=== PATIENT | female | born 1960 | race Caucasian/White ===

== ENCOUNTER 2018-12-18 11:58 | Emergency (ER) | payer BC, OTHER ==
[2018-12-18] MEDS ORDERED: OSELTAMIVIR 75 MG CAPSULE PO STA (14:01)
[2018-12-18] MEDS ORDERED: IPRATROPIUM/ALBUTEROL 3 ML NEB INH STA (14:01)
[2018-12-18] MEDS ORDERED: IBUPROFEN 800 MG TABLET PO STA (14:04)
--- NOTE | 2018-12-18 14:46 | ED Physician Documentation ---
History of Present Illness - Stated complaint Stated Complaint: FLU LIKE SX - Chief complaint Chief Complaint: General - History obtained from History obtained from: Patient - History of Present Illness Timing: How many days ago (3) - Additonal information Additional information: The patient is a 58-year-old female who presents with shortness of breath of 3 days duration. She reports feeling increasingly miserable, with fever, headache, myalgias, arthralgias, congestion, and nonproductive cough. She reports sore throat and states she has been wheezing. She denies abdominal pain, nausea or vomiting. She denies history of similar symptoms in the past. Review of Systems Constitutional: reports: Fever, Chills, Myalgias, Fatigue Ears: denies: Ear pain Nose: reports: Congestion Throat: reports: Sore throat Cardiac: denies: Chest pain / pressure Respiratory: reports: Dyspnea, Cough GI: denies: Abdominal Pain, Nausea, Vomiting : denies: Dysuria Skin: denies: Rash Musculoskeletal: denies: Extremity swelling Neurologic: reports: Headache. 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 05/30/15 Albuterol Sulf [Ventolin Hfa 1 - 2 puffs INH Q4HR PRN #1 inhaler 12/18/18 Inhaler] Ondansetron Odt [Zofran] 4 mg TL Q6H PRN #10 tablet 12/18/18 Oseltamivir [Tamiflu] 75 mg PO BID #14 capsule 12/18/18 predniSONE [Prednisone] 40 mg PO DAILY #10 tablet 12/18/18 - Allergies Allergies/Adverse Reactions: Allergies Allergy/AdvReac Type Severity Reaction Status Date / Time Sulfa (Sulfonamide Allergy Intermediate Rash Verified 07/02/13 13:21 Antibiotics) - Social History Does the pt smoke?: Yes Smoking Status: Current every day smoker Does the pt drink ETOH?: No Does the pt have substance abuse?: No - Immunizations Immunizations are current?: Yes PD ED PE NORMAL - Vitals Vital signs reviewed: Yes (Mildly tachycardic.) - General General: Alert and oriented X 3, Well developed/nourished, Other (Appears miserable.) - HEENT HEENT: Atraumatic, PERRL, Ears normal, Pharynx benign - Neck Neck: Supple, no meningeal sign, No adenopathy, Thyroid normal, No JVD - Cardiac Cardiac: RRR, No murmur - Respiratory Respiratory: Other (Faint expiratory wheezing, without rales or rhonchi.) - Abdomen Abdomen: Soft, Non tender - Back Back: No CVA TTP - Derm Derm: No rash - Extremities Extremities: No edema, No calf tenderness / cord - Neuro Neuro: Alert and oriented X 3, No motor deficit, No sensory deficit Results - Vitals Vitals: Oxygen O2 Source Room air Oxygen Flow Rate 2 - Labs Labs: Laboratory Tests 12/18/18 13:40 Influenza A (Rapid) POSITIVE H Influenza B (Rapid) Negative - Rads (name of study) CXR Radiology: Prelim report reviewed, EMP read contemporaneously, See rad report (No acute cardiopulmonary findings.) PD MEDICAL DECISION MAKING - ED course Complexity details: reviewed results, re-evaluated patient, considered differential, d/w patient, d/w family ED course: The patient's presentation is consistent with influenza a, with a positive influenza swab. Chest x-ray reveals no pulmonary infiltrate. Her pulse oximetry was low at 90% on room air when she initially arrived. Her presentation does not suggest pulmonary embolus. Treatment in the emergency department included administration of Duoneb nebulizer and dexamethasone 10 mg orally. Ibuprofen 800 mg and Tamiflu 75 mg were administered orally. Zofran 4 mg is administered IV. Following the above treatment she felt subjectively improved, and pulse oximetry improved to 94% on room air. She is being discharged with prescriptions for albuterol inhaler, prednisone, Tamiflu, and Zofran. I discussed with her and her the diagnosis, outpatient treatment and follow-up, as well as potentially worrisome signs or symptoms that should prompt reevaluation in the emergency department. Departure - Departure Disposition: 01 Home, Self Care Clinical Impression: Influenza A Condition: Stable Instructions: ED Flu Follow-Up: [facility] [Provider Group] Prescriptions: Albuterol Sulf [Ventolin Hfa Inhaler] 1 - 2 puffs INH Q4HR PRN #1 inhaler PRN Reason: Shortness Of Air/Wheezing Ondansetron Odt [Zofran] 4 mg TL Q6H PRN #10 tablet PRN Reason: Nausea / Vomiting Oseltamivir [Tamiflu] 75 mg PO BID #14 capsule predniSONE [Prednisone] 40 mg PO DAILY #10 tablet Comments: Refrain from cigarette smoking. You can use Tylenol or ibuprofen as needed for fever or discomfort. Take Tamiflu twice daily as prescribed. Use albuterol inhaler 4 times daily, or more often if needed. Take prednisone once daily as prescribed. Follow-up with primary physician within 1 week. Call to schedule an appointment. Return to the emergency department if you develop increasing difficulty breathing, or otherwise worsening symptoms. Discharge Date/Time: 12/18/18 17:18
[2018-12-18] MEDS ORDERED: DEXAMETHASONE 10 MG/ML VIAL PO STA (15:14)
[2018-12-18] MEDS ORDERED: CHERRY SYRUP 10 ML UDC PO ONE (15:28)
--- NOTE | 2018-12-18 15:35 | XRAY Report ---
Reason: cough and dyspnea Procedure Date: 12/18/2018 Accession Number: [id number] / [id number] Procedure: XR - Chest 2 View X-Ray CPT Code: 69121 FULL RESULT: EXAM: CHEST RADIOGRAPHY EXAM DATE: 12/18/2018 03:14 PM. CLINICAL HISTORY: Cough and dyspnea. COMPARISON: None available. TECHNIQUE: 2 views. FINDINGS: Heart size is normal. Small calcified plaques in the thoracic aorta. No consolidation, pleural effusion, or pneumothorax. Mild diffuse prominence of the pulmonary interstitium may be related to chronic lung disease. IMPRESSION: No acute cardiopulmonary findings. RADIA
[2018-12-18 16:56] VITALS: BP 149/74
[2018-12-18] MEDS ORDERED: ONDANSETRON 4 MG/2 ML VIAL IVP STA (17:05)
== END 2018-12-18 17:18 | disposition home or self-care (01) ==
LOC: ED 11:58
DX: J10.1 Influenza due to other identified influenza virus with other respiratory manifestations (principal); F17.200 Nicotine dependence, unspecified, uncomplicated; Z79.82 Long term (current) use of aspirin
CPT/HCPCS: 71046; 87275; 87276; 94640; 94664; 99283; A9270; 36415

== ENCOUNTER 2019-03-07 15:48 | Outpatient (CLI) | payer OTHER ==
--- NOTE | 2019-03-07 16:17 | CT Report ---
Reason: CHRONIC SINUSITIS Procedure Date: 03/07/2019 Accession Number: [id number] / [id number] Procedure: CT - Sinuses CPT Code: FULL RESULT: EXAM: CT SINUS EXAM DATE: 03/07/2019 04:04 PM. HISTORY: CHRONIC SINUSITIS. COMPARISONS: HEAD ANGIO 07/02/2013 2:52 PM. TECHNIQUE: Routine multi-axial CT imaging performed through the sinuses. Iodinated IV contrast: None. Reconstructions: Multiplanar reformats. In accordance with CT protocol optimization, one or more of the following dose reduction techniques were utilized for this exam: automated exposure control, adjustment of mA and/or KV based on patient size, or use of iterative reconstructive technique. FINDINGS: RIGHT Frontal: Normal. Ethmoid: Normal. Maxillary: Normal. Sphenoid: Normal. Drainage Pathways: The frontal recess, ostiomeatal complex and sphenoethmoidal recess are patent and normal. LEFT Frontal: Normal. Ethmoid: Normal. Maxillary: Normal. Sphenoid: Normal. Drainage Pathways: The frontal recess, ostiomeatal complex and sphenoethmoidal recess are patent and normal. Nasal Cavity: No significant septal deviation. No mass. There has been probable resection of the anterior septum. Osseous Structures: Unremarkable. Orbits: Unremarkable. Other: None. IMPRESSION: Normal Sinus CT. No sinusitis. RADIA
== END 2019-03-07 15:49 | disposition home or self-care (01) ==
LOC: DI 15:48
PROVIDERS: ATTEND Internal Medicine
DX: J32.9 Chronic sinusitis, unspecified (principal); J40 Bronchitis, not specified as acute or chronic
CPT/HCPCS: 70486; 71046

== ENCOUNTER 2019-03-07 15:48 | Outpatient (CLI) | payer OTHER ==
--- NOTE | 2019-03-07 16:18 | XRAY Report ---
Reason: BRONCHITIS,NOT SPECIFIED ACUTE OR CHRONIC Procedure Date: 03/07/2019 Accession Number: [id number] / [id number] Procedure: XR - Chest 2 View X-Ray CPT Code: 65412 FULL RESULT: EXAM: CHEST RADIOGRAPHY EXAM DATE: 03/07/2019 03:57 PM. CLINICAL HISTORY: Bronchitis, not SPECIFIED ACUTE OR CHRONIC. COMPARISON: CHEST 2 VIEW 12/18/2018 3:03 PM. TECHNIQUE: 2 views. FINDINGS: Lungs/Pleura: No focal opacities evident. No pleural effusion. No pneumothorax. Normal volumes. Mediastinum: Heart and mediastinal contours are unremarkable. Other: None. IMPRESSION: Normal 2-view chest radiography. RADIA
== END 2019-03-07 15:49 | disposition home or self-care (01) ==
LOC: DI 15:48
PROVIDERS: ATTEND Nurse Practitioner Family
DX: J40 Bronchitis, not specified as acute or chronic (principal)
CPT/HCPCS: 71046

== ENCOUNTER 2019-12-12 10:57 | Emergency (ER) | payer MEDICAID, OTHER ==
[2019-12-12] MEDS ORDERED: CYCLOBENZAPRINE 10 MG TABLET PO STA (12:48)
[2019-12-12] MEDS ORDERED: KETOROLAC 60 MG/2 ML VIAL IM STA (12:48)
--- NOTE | 2019-12-12 12:53 | ED Physician Documentation ---
History of Present Illness - Stated complaint Stated Complaint: RT LEG PX - Chief complaint Chief Complaint: Ext Problem - History obtained from History obtained from: Patient, Family - History of Present Illness Timing: How many days ago (3) Pain level max: 8 Pain level now: 3 - Additonal information Additional information: 59-year-old female states that she is had intermittent low back pain for the past several weeks. She works at [employer] and does a lot of bending and lifting. She states that over the past 3 days, She is developed a right groin pain. This is worse with walking. Unable to stand up straight. No abdominal pain. No vomiting. No diarrhea. No urinary symptoms. No numbness or tingling. Better with rest. Took Motrin yesterday without relief. No fevers. No IV drug use. No loss of bowel or bladder control No recent surgery or travel. 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 05/30/15 Albuterol Sulf [Ventolin Hfa 1 - 2 puffs INH Q4HR PRN #1 inhaler 12/18/18 Inhaler] Ondansetron Odt [Zofran] 4 mg TL Q6H PRN #10 tablet 12/18/18 Oseltamivir [Tamiflu] 75 mg PO BID #14 capsule 12/18/18 predniSONE [Prednisone] 40 mg PO DAILY #10 tablet 12/18/18 Cyclobenzaprine [Flexeril] 10 mg PO TID PRN #20 tablet 12/12/19 Hydrocodone/Acetaminophen 1 - 2 each PO Q6H PRN #14 tablet 12/12/19 [Hydrocodon-Acetaminophen 5-325] - Allergies Allergies/Adverse Reactions: Allergies Allergy/AdvReac Type Severity Reaction Status Date / Time Sulfa (Sulfonamide Allergy Intermediate Rash Verified 12/12/19 11:05 Antibiotics) - Social History Does the pt smoke?: Yes Smoking Status: Current some day smoker Does the pt drink ETOH?: No Does the pt have substance abuse?: No - Immunizations Immunizations are current?: Yes PD ED PE NORMAL - Vitals Vital signs reviewed: Yes - General General: Alert and oriented X 3, No acute distress, Well developed/nourished - HEENT HEENT: Moist mucous membranes - Neck Neck: Supple, no meningeal sign - Cardiac Cardiac: RRR, Strong equal pulses - Respiratory Respiratory: No respiratory distress, Clear bilaterally - Abdomen Abdomen: Soft, Non tender, Non distended - Back Back: No CVA TTP, No spinal TTP - Derm Derm: Warm and dry - Extremities Extremities: No deformity, No tenderness to palpate, Normal ROM s pain, No edema, No calf tenderness / cord - Neuro Neuro: Alert and oriented X 3, product assurance engineer 2-12 intact, No motor deficit, No sensory deficit, Normal speech - Psych Psych: Normal mood, Normal affect Results - Vitals Vitals: Vital Signs - 24 hr 12/12/19 12/12/19 11:05 14:53 Temperature 36.5 C 36.5 C Heart Rate 87 70 Respiratory 16 18 Rate Blood Pressure 163/85 H 168/113 H O2 Saturation 97 96 Oxygen O2 Source Room air - Rads (name of study) L spine xray Radiology: Prelim report reviewed, EMP read contemporaneously, See rad report (Mild degenerate change with a levoscoliosis. ) duplex US RLE Radiology: Prelim report reviewed, EMP read contemporaneously, See rad report (No evidence for deep venous thrombosis. A very small avascular subcutaneous focal fluid collection in right inguinal region measuring 1.8 x 0.5 x 1.2 cm. ? Hematoma/postsurgical seroma. Small subcutaneous fluid collection in right anterior knee/ knee joint effusion measuring 3.5 x 0.5 x 4.5 cm. ) PD MEDICAL DECISION MAKING - ED course Complexity details: reviewed results, re-evaluated patient, considered differential (No cauda equina, no spinal epidural abscess, no fracture, no aortic dissection or evidence of aneursym rupture), d/w patient, d/w family ED course: Patient with atraumatic low back pain that was radiating occasionally to the right leg. Has now developed right groin pain that radiates down the inner aspect of the leg towards the knee. No acute findings on x-ray. Does appear to have a very small avascular hematoma in the right inguinal region. Does not have any subcutaneous emphysema here. No evidence of infection overlying the skin. No evidence of abscess. Will place on pain medication for home, Mateusz bandage applied to the area. Patient counseled regarding signs and symptoms for which I believe and urgent re-evaluation would be necessary. Patient with good understanding of and agreement to plan and is comfortable going home at this time This document was made in part using voice recognition software. While efforts are made to proofread this document, sound alike and grammatical errors may occur. No evidence of necrotizing fasciitis. Departure - Departure Disposition: 01 Home, Self Care Clinical Impression: Hematoma Leg pain Qualifiers: Laterality: right Qualified Code(s): M79.604 - Pain in right leg Condition: Good Instructions: ED Hematoma Follow-Up: your,doctor in 1 week [Other] Prescriptions: Cyclobenzaprine [Flexeril] 10 mg PO TID PRN #20 tablet PRN Reason: Spasms Hydrocodone/Acetaminophen [Hydrocodon-Acetaminophen 5-325] 1 - 2 each PO Q6H PRN #14 tablet PRN Reason: pain Comments: Return if you worsen. You can use ice or heat if this helps you. Follow-up with your doctor for further care. Your ultrasound shows a small fluid collection that may be related to a hematoma today. Do not drink alcohol or drive while on narcotic pain medicine. Note that many narcotic pain relievers also contain tylenol/acetaminophen. Please ensure that your total dose of acetaminophen from all sources does not exceed 3 grams (3000mg) per day. You may constipated on this medication, take a stool softener such as "Colace" twice a day while you are on it. Also recommend a rejp-ubv-rpnhwmr laxative such as senna or MiraLAX any day that you do not have a bowel movement. If you received narcotic pain medication in the emergency department, do not drive or operate machinery for the next 24 hours. Discharge Date/Time: 12/12/19 15:06
--- NOTE | 2019-12-12 13:20 | XRAY Report ---
Reason: low back pain, no known injury Procedure Date: 12/12/2019 Accession Number: [id number] / [id number] Procedure: XR - Lumbar Spine 2 View CPT Code: Final Report FULL RESULT: EXAM: LUMBOSACRAL SPINE RADIOGRAPHY EXAM DATE: 12/12/2019 12:52 PM. CLINICAL HISTORY: Low back pain, no known injury. COMPARISONS: None. TECHNIQUE: 3 views. FINDINGS: Alignment: There is a 9 degree levoscoliosis centered on L3. There is straightening of the lumbar lordosis. Bones: Five [id number] lumbar vertebral bodies are present.Partial lumbarization of S1. Disks: There is endplate osteophyte formation throughout the lumbar spine. Facets: There is moderate facet joint osteoarthritis at L4-L5 and L5-S1 bilaterally. Sacroiliac Joints: Unremarkable. Soft Tissues: Normal. The visualized bowel gas pattern is normal. IMPRESSION: Mild degenerate change with a levoscoliosis. RADIA
--- NOTE | 2019-12-12 14:38 | Ultrasound Report ---
Reason: RLE pain Procedure Date: 12/12/2019 Accession Number: [id number] / [id number] Procedure: US - Duplex Ext Veins Right CPT Code: Final Report FULL RESULT: EXAM: RIGHT LOWER EXTREMITY VENOUS ULTRASOUND EXAM DATE: 12/12/2019 02:10 PM. CLINICAL HISTORY: RLE pain. COMPARISON: None. TECHNIQUE: Real-time sonographic vascular imaging was performed by the district sales coordinator through the lower extremity utilizing both color-flow and Doppler spectral analysis. Multiple in store marketing representative static images were saved for review. FINDINGS: Common Femoral Vein (CFV): Normal. CFV-GSV Junction: Normal. Profunda Femoral Vein (PFV): Normal. Femoral Vein (FV) Prox: Normal. Femoral Vein (FV) Mid: Normal. Femoral Vein (FV) Dist: Normal. Popliteal Vein: Normal. Posterior Tibial Veins: Normal. Peroneal Veins: Normal. Contralateral Side CFV: Normal. Other: A very small avascular subcutaneous focal fluid collection is seen in right inguinal region measuring 1.8 x 0.5 x 1.2 cm. Small subcutaneous fluid collection in right anterior knee measuring 3.5 x 0.5 x 4.5 cm. IMPRESSION: No evidence for deep venous thrombosis. A very small avascular subcutaneous focal fluid collection in right inguinal region measuring 1.8 x 0.5 x 1.2 cm. ? Hematoma/postsurgical seroma. Small subcutaneous fluid collection in right anterior knee/ knee joint effusion measuring 3.5 x 0.5 x 4.5 cm. RADIA
[2019-12-12] MEDS ORDERED: HYDROcod/ACETAM 5/325 MG TABLET PO STA (14:40)
[2019-12-12 14:56] VITALS: BP 168/113
== END 2019-12-12 15:06 | disposition home or self-care (01) ==
LOC: ED 10:57
DX: S30.1XXA Contusion of abdominal wall, initial encounter (principal); X58.XXXA Exposure to other specified factors, initial encounter; M79.604 Pain in right leg; M47.816 Spondylosis without myelopathy or radiculopathy, lumbar region; M41.86 Other forms of scoliosis, lumbar region; Z79.82 Long term (current) use of aspirin; F17.200 Nicotine dependence, unspecified, uncomplicated
CPT/HCPCS: 72100; 93971; 96372; 99284; A9270

== ENCOUNTER 2020-01-18 13:01 | Outpatient (CLI) | payer MEDICAID ==
--- NOTE | 2020-01-21 12:34 | Mammography Report ---
Reason: ROUTINE MAMMO Procedure Date: 01/18/2020 Accession Number: [id number] / [id number] Procedure: KARLY - Screening Mammo w/Reji CPT Code: Final Report FULL RESULT: EXAM: Screening Mammo w/Reji DATE: 01/18/2020 1:26 PM CLINICAL HISTORY: Screening encounter. Family history of breast cancer in the sister at the age of 60. Baseline exam. TECHNIQUE: (B) - Bilateral CC and MLO views were obtained. COMPARISON: None PARENCHYMAL PATTERN: (A) - The breast(s) demonstrate(s) scattered fibroglandular densities. FINDINGS: There are no suspicious masses, calcifications, or areas of distortion. IMPRESSION: Negative examination. BI-RADS category 1. RECOMMENDATION: (ANNUAL) - Recommend routine annual screening mammography. BI-RADS CATEGORY: (1) - Negative. STANDARD QUALIFYING STATEMENTS: 1. This examination was not reviewed with the aid of Computer-Aided Detection (CAD). 2. A negative or benign imaging report should not preclude biopsy if clinically suspicious findings are present. 3. Dense breasts may obscure an underlying neoplasm. 4. This examination was reviewed with the aid of 3D breast imaging (tomosynthesis).
== END 2020-01-18 13:02 | disposition home or self-care (01) ==
LOC: DI 13:01
PROVIDERS: ATTEND Registered Nurse
DX: Z12.31 Encounter for screening mammogram for malignant neoplasm of breast (principal); Z80.3 Family history of malignant neoplasm of breast
CPT/HCPCS: 77063; 77067

== ENCOUNTER 2020-01-29 13:45 | Day surgery (SDC) | payer MEDICAID ==
[2020-01-29] MEDS ORDERED: CEFAZOLIN SODIUM IN 0.9 % NACL 2 GM/100 ML BAG IV ONE (13:51)
[2020-01-29] MEDS ORDERED: LACTATED RINGERS 1,000 ML IV ONE (14:05)
--- NOTE | 2020-01-29 14:59 | ANESTHESIA ---
Pre-Anesthesia VS, & Labs - Diagnosis midback mass - Procedure excision of back mass Vital Signs: Temp Pulse Resp BP Pulse Ox 37 C 104 H 18 121/90 H 95 01/29/20 13:55 01/29/20 13:55 01/29/20 13:55 01/29/20 13:55 01/29/20 13:55 Height 5 ft 1 in Weight (kg) 71.8 kg Body Mass Index 30.2 - NPO >8 hours - Is Patient ?: No Home Medications and Allergies Home Medications: Ambulatory Orders Acetaminophen [Tylenol] 650 mg PO Q6H PRN 01/29/20 Aspirin [Aspir 81] 81 mg PO DAILY 07/02/13 Acetaminophen [Tylenol] 650 mg PO Q6H PRN 01/29/20 Allergies/Adverse Reactions: Allergies Allergy/AdvReac Type Severity Reaction Status Date / Time Sulfa (Sulfonamide Allergy Intermediate Rash Verified 12/12/19 11:05 Antibiotics) Anes History & Medical History - Anesthetic History Anesthesia Complications: reports: No previous complications - Medical History Cardiovascular: reports: None Pulmonary: reports: Asthma Gastrointestinal: reports: None Urinary: reports: None Musculoskeletal: reports: Osteoarthritis Endocrine/Autoimmune: reports: None Skin: reports: Other Smoking Status: Current some day smoker - Surgical History General: Colonoscopy Gynecologic: Tubal ligation Dermatologic: Skin cancer surgery Exam General: Alert Dental: WNL Mouth Opening: Greater than 4 Fingerbreadths Mallampati classification: II Thyromental Distance: greater than 6 cm Respiratory: Lungs clear Cardiovascular: Regular rate, Normal S1, Normal S2 Plan Anesthesia Type: General, MAC, Total IV Consent for Procedure(s) Verified and Reviewed: Yes Code Status: Attempt Resuscitation ASA classification: 2-Mild systemic disease Is this case an emergency?: Yes
[2020-01-29] MEDS ORDERED: BUPIVACAINE 0.5% PF 10 ML VIAL ONE (17:13)
[2020-01-29] MEDS ORDERED: LIDOCAINE 1%-EPI 1:100000 20 ML MDV ONE (17:13)
[2020-01-29] MEDS ORDERED: HYDROmorphone 0.5 MG/0.5 ML SYRINGE IVP PRN (17:24)
[2020-01-29] MEDS ORDERED: oxyCODONE 5 MG TABLET PO PRN (17:24)
[2020-01-29] MEDS ORDERED: ONDANSETRON 4 MG/2 ML VIAL IVP PRN (17:24)
[2020-01-29] MEDS ORDERED: KETAMINE 500 MG/10 ML VIAL IVP ONE (17:37)
[2020-01-29] MEDS ORDERED: KETOROLAC 30 MG/ML VIAL IVP ONE (17:37)
[2020-01-29] MEDS ORDERED: PROPOFOL 200 MG/20 ML VIAL IVP ONE (17:37)
[2020-01-29] MEDS ORDERED: MIDAZOLAM 2 MG/2 ML VIAL IVP ONE (17:37)
[2020-01-29] MEDS ORDERED: LIDOCAINE-MPF 2% 5 ML VIAL IM ONE (17:37)
[2020-01-29] MEDS ORDERED: fentaNYL 100 MCG/2 ML VIAL IVP ONE (17:37)
[2020-01-29] MEDS ORDERED: ACETAMINOPHEN 1,000 MG/100 ML 100 ML IV ONE (17:37)
[2020-01-29] MEDS ORDERED: LIDOCAINE 1%-EPI 1:100000 20 ML MDV SUBQ ONE (17:51)
[2020-01-29] MEDS ORDERED: BUPIVACAINE 0.5% PF 10 ML VIAL SUBQ ONE (17:51)
--- NOTE | 2020-01-29 18:18 | OPERATIVE REPORT ---
Operative Report - General Procedure Date: 01/29/20 Pre-Op Diagnosis: Lipoma of Back Procedure Performed: Excision of Back Lipoma Post Op Diagnosis: same - Procedure Note Primary Surgeon: Dedra Xiong MD Anesthesia Provider: Yanique Doll CRNA Anesthesia Technique: MAC Pathology: back mass consistent with lipoma; 7x4cm Estimated Blood Loss (mL): 2 Indications: 59yo F with a symptomatic back mass consistent with lipoma on exam. She wishes for removal after discussion of risks, benefits, and alternatives. Findings: back mass, fatty tissue consistent with lipoma; 7x4cm Complications: none - Other Other Information/Narrative: Patient is taken to the OR suite, placed in prone position, and induced to an acceptable level of general anesthesia. The area is prepped and draped in sterile fashion and a timeout performed with the team present. Attention is turned to the lesion of the midback just to right of midline. Local anesthesia is infiltrated over the site. An incision is made with a 15 blade scalpel over the mass in longitudinal direction. It is carried down through the dermis and subcutaneous tissues using electrocautery. The mass is encountered in the subc utaneous tissues and is released from its attachments with blunt and sharp dissection. Once released fully, it is sent off the field. The field is irrigated and hemostasis ensured. The deep tissue is closed wtih 2-0 vicyrl and the dermis is closed with 3-0 vicryl in an interrupted fashion. The epidermis is closed with 4-0 monocryl in running fashion. The area is cleaned and dried and dermabond applied. All counts were correct. Patient tolerated the procedure well, was awakened without issue, and taken to PACU hemodynamically stable.
[2020-01-29 18:50] VITALS: BP 138/75
== END 2020-01-29 13:46 | disposition home or self-care (01) ==
LOC: SDS 13:45
PROVIDERS: ATTEND Surgery
PROC: 0JB70ZZ Excision of Back Subcutaneous Tissue and Fascia, Open Approach (ICD-10-PCS; principal; 2020-01-29 16:00)
DX: D17.1 Benign lipomatous neoplasm of skin and subcutaneous tissue of trunk (principal); J45.909 Unspecified asthma, uncomplicated; F17.210 Nicotine dependence, cigarettes, uncomplicated; M19.90 Unspecified osteoarthritis, unspecified site; Z79.1 Long term (current) use of non-steroidal anti-inflammatories (NSAID); Z79.82 Long term (current) use of aspirin; Z82.49 Family history of ischemic heart disease and other diseases of the circulatory system; Z85.828 Personal history of other malignant neoplasm of skin; Z88.2 Allergy status to sulfonamides
CPT/HCPCS: 21931; J0131; J0690; J7120

== ENCOUNTER 2023-12-16 14:15 | Outpatient (CLI) | payer MEDICARE, MEDICAID ==
--- NOTE | 2023-12-16 16:12 | XRAY Report ---
PROCEDURE: Lumbar Spine 4V INDICATIONS: LOW BACK PAIN TECHNIQUE: 4 views of the lumbar spine were acquired. COMPARISON: 12/12/2019. FINDINGS: Bones: 5 [id number]-rfq-vrabauo vertebrae are present. There is normal bony alignment. No vertebral body compression fractures. No suspicious bony lesions. Oblique views demonstrate no pars defects. There is multilevel facet arthropathy and advanced multilevel degenerative disc space loss with posterior osteophytes. Soft tissues: Overlying bowel gas pattern is normal. No suspicious soft tissue calcifications. IMPRESSION: Diffuse degenerative change. No acute bony abnormality. Reviewed by: Julito Sarabia MD on 12/16/2023 4:10 PM PST Approved by: Julito Sarabia MD on 12/16/2023 4:10 PM PST Station ID: [id number]
== END 2023-12-16 14:30 | disposition home or self-care (01) ==
LOC: DI.N 14:15
PROVIDERS: ATTEND Physician Assistant Medical
DX: M47.816 Spondylosis without myelopathy or radiculopathy, lumbar region (principal)

== ENCOUNTER 2024-03-24 07:46 | Outpatient (CLI) | payer MEDICARE, MEDICAID | END 2024-03-24 23:59 | disposition critical access hospital (66) | LOC: EMS 07:46 | DX: R25.1 Tremor, unspecified (principal); R25.2 Cramp and spasm; R50.9 Fever, unspecified; R00.0 Tachycardia, unspecified; R09.89 Other specified symptoms and signs involving the circulatory and respiratory systems | CPT/HCPCS: A0425; A0429 ==

== ENCOUNTER 2024-03-24 08:10 | Emergency (ER) | payer MEDICARE, MEDICAID ==
--- NOTE | 2024-03-24 09:02 | ED Physician Documentation ---
PD HPI URI - Stated complaint Stated Complaint: FEVER - Chief complaint Chief Complaint: Fever - History obtained from History obtained from: Patient, EMS - History of Present Illness Timing - onset: How many days ago (3) Timing duration: Days (3) Timing details: Gradual onset, Still present Associated symptoms: Fever, Nasal congestion, Dry cough, Other (shaking) Similar symptoms before: Has not had sx before Recently seen: Not recently seen - Additional information Additional information: Dot Gomes is a 64-year-old female with a history of hypertension and reactive airway disease who has developed acute vomiting and diarrhea of 3 days duration. She indicates that she usually stops drinking early in the evening to avoid having to get up to go to the bathroom. She denies significant alcohol use and has not had recent alcohol use in the past several weeks. She does smoke but indicates she is only smoking about half a cigarette per day. This morning she was weak enough that she had a difficult time getting out of bed. She also indicates that she has been having some shaking. Daily for some periods of time. Review of Systems Constitutional: reports: Fever, Chills. denies: Sweats Eyes: denies: Decreased vision Ears: denies: Ear pain Nose: reports: Rhinorrhea / runny nose, Congestion Throat: reports: Sore throat (scratchy past 3 days) Cardiac: denies: Chest pain / pressure, Palpitations Respiratory: reports: Cough. denies: Dyspnea GI: reports: Nausea, Vomiting (once). denies: Abdominal Pain, Constipation, Diarrhea : denies: Dysuria, Frequency Skin: denies: Rash Musculoskeletal: reports: Back pain. denies: Neck pain Neurologic: denies: Generalized weakness, Focal weakness, Numbness PD PAST MEDICAL HISTORY - Past Medical History Past Medical History: Yes Cardiovascular: None Respiratory: Asthma Neuro: Seizure disorder Endocrine/Autoimmune: None GI: None : None HEENT: None Psych: None Musculoskeletal: Osteoarthritis Derm: Other - Past Surgical History Past Surgical History: Yes General: Colonoscopy /APPLIED PSYCHOLOGY CHAIR: Tubal ligation Derm: Skin cancer surgery - Present Medications Home Medications: Ambulatory Orders Medication Instructions Recorded Confirmed Albuterol Sulf [Ventolin Hfa 1 - 2 puffs INH Q4HR PRN #1 inhaler 12/18/18 03/24/24 Inhaler] Aspirin [Kandace] 325 mg PO DAILY 03/24/24 03/24/24 Gabapentin [Neurontin] 600 mg PO HS 03/24/24 03/24/24 Ondansetron Odt [Zofran] 4 mg TL Q6H PRN #10 tablet 03/24/24 tiZANidine [Zanaflex] 4 mg PO HS PRN 03/24/24 03/24/24 - Allergies Allergies/Adverse Reactions: Allergies Allergy/AdvReac Type Severity Reaction Status Date / Time Sulfa (Sulfonamide Allergy Intermediate Rash Verified 03/24/24 08:25 Antibiotics) - Social History Does the pt smoke?: Yes Smoking Status: Never smoker Does the pt drink ETOH?: No Does the pt have substance abuse?: No - Immunizations Immunizations are current?: Yes - POLST Patient has POLST: No PD ED PE NORMAL - Vitals Vital signs reviewed: Yes (tachy and tachypneic with hypoxia) - General General: Alert and oriented X 3, No acute distress, Well developed/nourished - HEENT HEENT: Atraumatic, PERRL, EOMI, Ears normal, Pharynx benign, Other (parched mucous membranes ) - Neck Neck: Supple, no meningeal sign, No bony TTP - Cardiac Cardiac: No murmur, Other (tachy to 110) - Respiratory Respiratory: Other (mild tachypnea at rest with bibasilar rhonchi worse on the right with expiration. ) - Abdomen Abdomen: Soft, Non tender - Back Back: No CVA TTP, No spinal TTP - Derm Derm: Normal color, Warm and dry, No rash - Extremities Extremities: No deformity, No edema - Neuro Neuro: Alert and oriented X 3, injury prevention coordinator 2-12 intact, No motor deficit, No sensory deficit, Normal speech Eye Opening: Spontaneous Motor: Obeys Commands Verbal: Oriented GCS Score: 15 - Psych Psych: Normal mood, Normal affect Results - Vitals Vitals: Vital Signs - 24 hr 03/24/24 03/24/24 03/24/24 08:25 09:08 09:48 Temperature 37.9 C Heart Rate 121 H 95 90 Respiratory 26 H 18 16 Rate Blood Pressure 107/68 117/83 H 119/81 H O2 Saturation 86 L 96 99 If not protocol 2 2 : Oxygen Flow, liters/minute 03/24/24 03/24/24 03/24/24 10:00 10:30 11:00 Temperature Heart Rate 93 88 87 Respiratory 16 16 16 Rate Blood Pressure 100/86 H 113/90 H 108/63 O2 Saturation 98 96 96 If not protocol 2 2 2 : Oxygen Flow, liters/minute 03/24/24 03/24/24 03/24/24 11:30 12:00 12:30 Temperature Heart Rate 86 85 82 Respiratory 18 16 16 Rate Blood Pressure 117/78 121/57 L 120/65 O2 Saturation 95 95 95 If not protocol 1.5 1.5 1.5 : Oxygen Flow, liters/minute 03/24/24 03/24/24 03/24/24 13:00 13:30 14:00 Temperature Heart Rate 76 80 76 Respiratory 18 18 18 Rate Blood Pressure 121/75 111/61 100/62 O2 Saturation 90 L 95 96 If not protocol 1.5 1.5 1.5 : Oxygen Flow, liters/minute 03/24/24 03/24/24 03/24/24 14:30 15:00 15:30 Temperature 36.7 C Heart Rate 76 76 80 Respiratory 14 14 16 Rate Blood Pressure 104/60 86/56 L 97/56 L O2 Saturation 95 95 96 If not protocol 1.5 1.5 1.5 : Oxygen Flow, liters/minute 03/24/24 03/24/24 03/24/24 16:00 16:22 17:20 Temperature Heart Rate 81 79 78 Respiratory 16 16 18 Rate Blood Pressure 105/63 101/72 O2 Saturation 94 93 If not protocol 1.5 1 : Oxygen Flow, liters/minute Oxygen O2 Source Nasal cannula - EKG (time done) 0825 EKG releavant findings:: EKG personally interpreted by author of this note. Relevant findings are: Rate: Rate (enter#) (102) Rhythm: Sinus tachycardia, LAE Ischemia: Non specific changes Compare to prior EKG: Changed from prior EKG ([facility] 05-30-2015 rate has increased and non-specific changes have occurred. ) Computer interpretation: Agree with computer - Labs Labs: Laboratory Tests 03/24/24 03/24/24 03/24/24 09:05 09:13 09:13 WBC 16.3 H RBC 4.49 Hgb 11.6 L Hct 38.9 MCV 86.6 MCH 25.8 L MCHC 29.8 L RDW 14.8 Plt Count 170 MPV 12.4 H Neut # (Auto) 14.3 H Lymph # (Auto) 1.2 L Branch # (Auto) 0.7 Eos # (Auto) 0.0 Baso # (Auto) 0.0 Absolute Nucleated RBC 0.00 Nucleated RBC % 0.0 Sodium 134 L Potassium 4.6 H Chloride 100 L Carbon Dioxide 25 Anion Gap 9.0 BUN 45 H Creatinine 3.3 H Estimated GFR (MDRD) 14 L Glucose 150 H Lactic Acid Calcium 9.4 Total Bilirubin 0.8 AST 19 ALT 10 Alkaline Phosphatase 74 Total Creatine Kinase Total Protein 6.7 Albumin 4.0 Globulin 2.7 Albumin/Globulin Ratio 1.5 Lipase 14 Urine Color Urine Clarity Urine pH Ur Specific [place] Urine Protein Urine Glucose (UA) Urine Ketones Urine Occult Blood Urine Nitrite Urine Bilirubin Urine Urobilinogen Ur Leukocyte Esterase Urine RBC Urine WBC Ur Squamous Epith Cells Urine Bacteria Urine Casts Urine Mucus Ur Microscopic Review Urine Culture Comments Nasal Adenovirus (PCR) NOT DETECTED Nasal B. parapertussis DNA (PCR) NOT DETECTED Nasal Coronavir 229E PCR NOT DETECTED Nasal Coronavir HKU1 PCR NOT DETECTED Nasal Coronavir NL63 PCR NOT DETECTED Nasal Coronavir OC43 PCR NOT DETECTED Nasal Enterovir/Rhinovir PCR NOT DETECTED Nasal Influenza B PCR NOT DETECTED Nasal Influenza A PCR NOT DETECTED Nasal Parainfluen 1 PCR NOT DETECTED Nasal Parainfluen 2 PCR NOT DETECTED Nasal Parainfluen 3 PCR NOT DETECTED Nasal Parainfluen 4 PCR NOT DETECTED Nasal RSV (PCR) NOT DETECTED Nasal B.pertussis DNA PCR NOT DETECTED Nasal C.pneumoniae (PCR) NOT DETECTED Chao Human Metapneumo PCR NOT DETECTED Nasal M.pneumoniae (PCR) NOT DETECTED Nasal SARS-CoV-2 (PCR) NOT DETECTED 03/24/24 03/24/24 03/24/24 09:13 09:20 09:50 WBC RBC Hgb Hct MCV MCH MCHC RDW Plt Count MPV Neut # (Auto) Lymph # (Auto) Branch # (Auto) Eos # (Auto) Baso # (Auto) Absolute Nucleated RBC Nucleated RBC % Sodium Potassium Chloride Carbon Dioxide Anion Gap BUN Creatinine Estimated GFR (MDRD) Glucose Lactic Acid 1.1 Calcium Total Bilirubin AST ALT Alkaline Phosphatase Total Creatine Kinase 672 H Total Protein Albumin Globulin Albumin/Globulin Ratio Lipase Urine Color YELLOW Urine Clarity CLEAR Urine pH 5.5 Ur Specific [place] >=1.030 H Urine Protein 30 H Urine Glucose (UA) NEGATIVE Urine Ketones NEGATIVE Urine Occult Blood MODERATE H Urine Nitrite NEGATIVE Urine Bilirubin NEGATIVE Urine Urobilinogen 0.2 (NORMAL) Ur Leukocyte Esterase NEGATIVE Urine RBC 0-5 Urine WBC 0-3 Ur Squamous Epith Cells RARE Squamous Urine Bacteria None Seen Urine Casts 0-2 Hyaline Casts Urine Mucus Few Strands Ur Microscopic Review INDICATED Urine Culture Comments NOT INDICATED Nasal Adenovirus (PCR) Nasal B. parapertussis DNA (PCR) Nasal Coronavir 229E PCR Nasal Coronavir HKU1 PCR Nasal Coronavir NL63 PCR Nasal Coronavir OC43 PCR Nasal Enterovir/Rhinovir PCR Nasal Influenza B PCR Nasal Influenza A PCR Nasal Parainfluen 1 PCR Nasal Parainfluen 2 PCR Nasal Parainfluen 3 PCR Nasal Parainfluen 4 PCR Nasal RSV (PCR) Nasal B.pertussis DNA PCR Nasal C.pneumoniae (PCR) Chao Human Metapneumo PCR Nasal M.pneumoniae (PCR) Nasal SARS-CoV-2 (PCR) - Rads (name of study) chest angio Relevant Findings:: Prelim report reviewed (Impression: 1. No pulmonary embolus. No acute cardiopulmonary process.), EMP independent interpretation of test chest Relevant Findings:: Prelim report reviewed (Impression: Portable chest within normal limits for age.), EMP independent interpretation of test Procedures - IVC sono (time) 0850 Bedside IVC sono: IVC measures (cm) (0.94), IVC collapsed c insp (cm) (complete), Dehydration (est 2 liter deficit) PD Medical Decision Making - ED course Complexity details: reviewed old records, reviewed results, re-evaluated patient, considered differential, d/w patient, d/w family Reviewed Lab Results: We reviewed a complete blood cell count showing a elevated white blood cell count of 16.5 hemoglobin mildly depressed at 11.6 hematocrit normal at 38.9 platelets normal at 170,000. Chemistries show a serum sodium of 134 potassium elevated at 4.6 and evidence of acute kidney injury with a BUN elevated at 45 and creatinine elevated at 3.3 these numbers are compared to prior visits which have been normal dating back to 2015. Total CK was elevated at 672 lactate was normal at 1.1 urinalysis shows a specific gravity greater than 1.030 some protei n is present and occult blood with 0-5 red blood cells per high-powered field. I interpret these laboratory results to indicate the degree of dehydration the patient has is consistent with the findings of elevated urine specific gravity. Despite having elevated white blood cell count the patient's lactate of 1.1 with evidence of significant dehydration rules against the possibility of overwhelming sepsis. Her elevation of total CK is consistent with her history of shaking. Her level of kidney injury indicates significant dehydration likely causing the patient's presenting symptoms of weakness. Viral PCR was negative. ED course: 64-year-old female presenting to the emergency department with weakness and a history of shaking, vomiting and diarrhea this found to be significantly dehydrated with evidence of acute kidney injury associated. She was hydrated in the emergency department with 2 L of normal saline and felt much improved. She arrived with oxygen saturations in the 80s and was placed on oxygen on arrival. She did have rhonchi in the base of both lungs and had no findings on plain film of her chest. She continued to be hypoxic and I considered alternative etiologies of hypoxia to include pulmonary embolism and we obtained a pulmonary angiogram. This demonstrated no significant abnormality. I then turned by attention to reasons for evidence of hypoxia with normal-appearing lungs. She does have a history of reactive airway disease and she was given a DuoNeb treatment with improvement. Ultimately I believe her poor oxygen saturations were more likely due to poor perfusion. We found no significant pulmonary pathology. At the conclusion of treatment the patient was able to maintain oxygen saturation in the 90s without supplementation. She is ultimately diagnosed with gastroenteritis resulting in profound dehydration and acute kidney injury. Her acute kidney injury is expected to recover completely. Departure - Departure Disposition: 01 Home, Self Care Clinical Impression: Gastroenteritis, Dehydration, Acute kidney injury Condition: Stable Instructions: ED Dehydration, ED Gastroenteritis Viral Follow-Up: Nhi Kimble ARNP [Primary Care Provider] - Prescriptions: Ondansetron Odt [Zofran] 4 mg TL Q6H PRN #10 tablet PRN Reason: Nausea / Vomiting Comments: Dot, today it appears that you were profoundly dehydrated when you showed up to the emergency department and this is the underlying reason for your profound weakness this morning and inability to walk. We have administered 2 L of saline intravenously and I expect you will need to drink additional fluids today to get your volume back to near normal. I recommend that you drink enough fluids to urinate twice before going to bed. The amount of dehydration you demonstrated was enough to cause a problem with an acute kidney injury. Hydrate adequately every day for the next week and follow-up with your primary care doctor for a repeat blood test. Your kidney function should return to normal. You may have additional nausea and I have e-scribed some zofran for nausea to the [facility] in [place]. Forms: PCP List Discharge Date/Time: 03/24/24 17:20
[2024-03-24] MEDS: SODIUM CHLORIDE 0.9% 1,000 ML IV STA ×2 (09:06→12:01)
[2024-03-24 09:24] LABS: BASOPHILS % (AUTO) 0.2 %; EOSINOPHILS % (AUTO) 0.1 %; HCT - HEMATOCRIT 38.9 % (37.0-47.0); HGB - HEMOGLOBIN 11.6 g/dL (12.0-16.0); LYMPHOCYTES # (AUTO) 1.2 10^3/uL (1.5-3.5); LYMPHOCYTES % (AUTO) 7.2 %; MEAN CORPUSCULAR HEMOGLOBIN 25.8 pg (27.0-31.0); MEAN CORPUSCULAR HGB CONC 29.8 g/dL (32.0-36.0); MEAN CORPUSCULAR VOLUME 86.6 fL (81.0-99.0); MEAN PLATELET VOLUME 12.4 fL (7.9-10.8); MONOCYTES # (AUTO) 0.7 10^3/uL (0.0-1.0); MONOCYTES % (AUTO) 4.5 %; NEUTROPHILS # (AUTO) 14.3 10^3/uL (1.5-6.6); NEUTROPHILS % (AUTO) 87.6 %; PLT - PLATELET COUNT 170 10^3/uL (130-450); RED BLOOD COUNT 4.49 10^6/uL (4.20-5.40); RED CELL DISTRIBUTION WIDTH 14.8 % (12.0-15.0); WHITE BLOOD COUNT 16.3 x10^3/uL (4.8-10.8)
[2024-03-24 09:39] LABS: ALBUMIN/GLOBULIN RATIO 1.5 (1.0-2.2); BILIRUBIN,TOTAL 0.8 mg/dL (0.2-1.0); CALCIUM 9.4 mg/dL (8.5-10.3); CREATININE 3.3 mg/dL (0.6-1.3); POTASSIUM 4.6 mmol/L (3.5-4.5); TOTAL PROTEIN 6.7 g/dL (6.4-8.9)
--- NOTE | 2024-03-24 09:50 | XRAY Report ---
PROCEDURE: Chest 1V INDICATIONS: chest pain TECHNIQUE: One view of the chest was acquired. COMPARISON: 03/07/2019 FINDINGS: Surgical changes and devices: None. Lungs and pleura: On the semiupright images, no large pneumothorax or large pleural effusions can be seen. No focal infiltrates are seen. Mediastinum: Mediastinal contours appear normal. Heart size is normal. Bones and chest wall: No suspicious bony lesions. Age-appropriate degenerative changes are seen. Overlying soft tissues appear unremarkable. IMPRESSION: Portable chest within normal limits for age. Reviewed by: Rocky Molina MD on 03/24/2024 8:48 AM ALVINA Approved by: Rocky Molina MD on 03/24/2024 8:48 AM ALVINA Station ID: [id number]
[2024-03-24 10:26] LABS: B. PARAPERTUSSIS- RESP PCR PAN NOT DETECTED; B. PERTUSSIS- RESP PCR PANEL NOT DETECTED; C. PNEUMONIAE- RESP PCR PANEL NOT DETECTED; CORONAVIRUS 229E-RESP PCR NOT DETECTED; CORONAVIRUS HKU1-RESP PCR NOT DETECTED; CORONAVIRUS NL63-RESP PCR NOT DETECTED; CORONAVIRUS OC43-RESP PCR NOT DETECTED; HUMAN METAPNEUMOVIRUS NOT DETECTED; INFLUENZA A- RESP PCR PANEL NOT DETECTED; INFLUENZA B - RESP PCR PANEL NOT DETECTED; M. PNEUMONIAE- RESP PCR PANEL NOT DETECTED; PARAINFLUENZA VIRUS 1 NOT DETECTED; PARAINFLUENZA VIRUS 2 NOT DETECTED; PARAINFLUENZA VIRUS 3 NOT DETECTED; PARAINFLUENZA VIRUS 4 NOT DETECTED; RHINOVIRUS/ENTEROVIRUS NOT DETECTED; RSV- RESP PCR PANEL NOT DETECTED; SARS-CoV-2 -RESP PCR PANEL NOT DETECTED
[2024-03-24 10:52] LABS: BILIRUBIN,URINE NEGATIVE (NEGATIVE); GLUCOSE, URINE (UA) NEGATIVE (NEGATIVE); KETONES,URINE (UA) NEGATIVE (NEGATIVE); LEUKOCYTE ESTERASE, URINE NEGATIVE (NEGATIVE); NITRITE,URINE NEGATIVE (NEGATIVE); OCCULT BLOOD,URINE MODERATE (NEGATIVE); PH,URINE 5.5 PH (5.0-7.5); PROTEIN,URINE 30 mg/dL (NEGATIVE); UROBILINOGEN,URINE 0.2 (NORMAL) E.U./dL (NORMAL)
[2024-03-24 10:55] LABS: CLARITY,URINE CLEAR (CLEAR)
[2024-03-24 11:01] LABS: BACTERIA,URINE None Seen /HPF (None Seen); CASTS, URINE 0-2 Hyaline Casts /LPF; MUCUS,URINE Few Strands; RBC,URINE 0-5 /HPF (0-5); SQUAMOUS EPITHELIAL CELL,UR RARE Squamous (<= Few); WBC,URINE 0-3 /HPF (0-5)
[2024-03-24] MEDS ORDERED: iohexoL-300 100 ML VIAL ONE (12:44)
--- NOTE | 2024-03-24 15:34 | CT Report ---
PROCEDURE: Angio Chest INDICATIONS: persistent hypoxia normal 1 view chest CONTRAST: 80ml omni 300 TECHNIQUE: After the administration of intravenous contrast, 2 mm axial images were acquired from the pulmonary apices to the posterior costophrenic angles during the arterial phase. In addition, 1 mm lung kernel and 5 mm soft tissue kernel reconstructions were performed. 3-dimensional coronal oblique maximum int ensity projection (MIP) reformats, 8 mm axial MIP, and 5 mm coronal and sagittal MPR reformats were t hen performed through the thorax. For radiation dose reduction, the following was used: automated exp osure control, adjustment of mA and/or kV according to patient size. COMPARISON: Chest x-ray, 03/24/2010 24. FINDINGS: Image quality: Excellent. Large vessels: No filling defects within the opacified pulmonary arteries, accounting for motion and contrast timing. No evidence of acute aortic syndrome or aortic aneurysm. Lungs and pleura: No consolidation. No pleural effusions. No pneumothorax. No suspicious pulmonary n odules which require follow up. Mediastinum: Heart size is normal. No pericardial effusion. No large vessel abnormality. No mediastin al adenopathy by size criteria. Small hiatal hernia. Chest wall and lower neck: Thyroid is unremarkable. No axillary or supraclavicular adenopathy by size . Bones: No aggressive osseous abnormality. Upper Abdomen: Unremarkable. IMPRESSION: 1. No pulmonary embolus. 2. No acute cardiopulmonary process. 3. Small hiatal hernia. Reviewed by: Jose A Estes MD on 03/24/2024 3:32 PM PDT Approved by: Jose A Estes MD on 03/24/2024 3:32 PM PDT Station ID: [id number]
[2024-03-24] MEDS: iohexoL-300 100 ML VIAL IVP ONE (15:44)
[2024-03-24] MEDS: IPRATROPIUM/ALBUTEROL 3 ML NEB INH STA (16:15)
[2024-03-24 17:22] VITALS: BP 101/72; O2SAT 93
== END 2024-03-24 17:20 | disposition home or self-care (01) ==
LOC: EDUNIT# → SUPCPDRO 08:10 → ED 08:10
DX: K52.9 Noninfective gastroenteritis and colitis, unspecified (principal); E86.0 Dehydration; N17.9 Acute kidney failure, unspecified; R09.02 Hypoxemia; J45.909 Unspecified asthma, uncomplicated; F17.200 Nicotine dependence, unspecified, uncomplicated
CPT/HCPCS: 36415; 71045; 71275; 80053; 81001; 82550; 83605; 83690; 85025; 87040; 87633; 93005; 94640; 96360; 96361; 99284; Q9967; 81003; 87086

== ENCOUNTER 2024-07-04 19:57 | Emergency (ER) | payer MEDICARE, MEDICAID ==
--- NOTE | 2024-07-04 22:06 | ED Physician Documentation ---
History of Present Illness - Stated complaint Stated Complaint: FEVER/BODY ACHES - Chief complaint Chief Complaint: Fever - History obtained from History obtained from: Patient - Additonal information Additional information: Patient is a 64-year-old female with past medical history of asthma presents to the emergency department with fever and bodyaches. Patient notes symptoms have progressively worsened over the day. She notes symptoms have progressively worsened with increased body aches especially in her back. She denies any neck pain no photophobia. She took her temperature at home to 101. She took Kandace aspirin for symptoms without relief. She has mild cough but no shortness of breath or chest pain. She notes sore throat and congestion associated with her symptoms. Patient is unsure of any recent sick contacts. 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 ACCOUNTANT: Tubal ligation Derm: Skin cancer surgery - Present Medications Home Medications: Ambulatory Orders Medication Instructions Recorded Confirmed Albuterol Sulf [Ventolin Hfa 1 - 2 puffs INH Q4HR PRN #1 inhaler 12/18/18 03/24/24 Inhaler] Aspirin [Kandace] 325 mg PO DAILY 03/24/24 03/24/24 Gabapentin [Neurontin] 600 mg PO HS 03/24/24 03/24/24 Ondansetron Odt [Zofran] 4 mg TL Q6H PRN #10 tablet 03/24/24 tiZANidine [Zanaflex] 4 mg PO HS PRN 03/24/24 03/24/24 Albuterol Sulf [Ventolin Hfa 1 - 2 puffs INH Q4HR PRN #1 each 07/04/24 Inhaler] Benzonatate [Tessalon] 100 mg PO TID #14 cap 07/04/24 - Allergies Allergies/Adverse Reactions: Allergies Allergy/AdvReac Type Severity Reaction Status Date / Time Sulfa (Sulfonamide Allergy Intermediate Rash Verified 07/04/24 20:46 Antibiotics) - Social History Does the pt smoke?: Yes Smoking Status: Current every day smoker Does the pt drink ETOH?: No Does the pt have substance abuse?: No - Immunizations Immunizations are current?: Yes - POLST Patient has POLST: No PD ED PE NORMAL - Vitals Vital signs reviewed: Yes - General General: Alert and oriented X 3 - HEENT HEENT: Atraumatic, Moist mucous membranes - Neck Neck: Supple, no meningeal sign, No adenopathy - Cardiac Cardiac: RRR, No murmur, No gallop, No rub - Respiratory Respiratory: No respiratory distress, Clear bilaterally - Abdomen Abdomen: Normal bowel sounds, Non tender, Non distended - Back Back: No CVA TTP - Derm Derm: Normal color, No rash - Extremities Extremities: Normal ROM s pain - Neuro Neuro: Alert and oriented X 3 Eye Opening: Spontaneous Motor: Obeys Commands Verbal: Oriented GCS Score: 15 Results - Vitals Vitals: Oxygen O2 Source Room air - Labs Labs: Laboratory Tests 07/04/24 20:30 Nasal Adenovirus (PCR) NOT DETECTED Nasal B. parapertussis DNA (PCR) NOT DETECTED Nasal Coronavir 229E PCR NOT DETECTED Nasal Coronavir HKU1 PCR NOT DETECTED Nasal Coronavir NL63 PCR NOT DETECTED Nasal Coronavir OC43 PCR NOT DETECTED Nasal Enterovir/Rhinovir PCR NOT DETECTED Nasal Influenza B PCR NOT DETECTED Nasal Influenza A PCR NOT DETECTED Nasal Parainfluen 1 PCR NOT DETECTED Nasal Parainfluen 2 PCR NOT DETECTED Nasal Parainfluen 3 PCR NOT DETECTED Nasal Parainfluen 4 PCR NOT DETECTED Nasal RSV (PCR) NOT DETECTED Nasal B.pertussis DNA PCR NOT DETECTED Nasal C.pneumoniae (PCR) NOT DETECTED Chao Human Metapneumo PCR NOT DETECTED Nasal M.pneumoniae (PCR) NOT DETECTED Nasal SARS-CoV-2 (PCR) DETECTED A PD Medical Decision Making - ED course Complexity details: reviewed results ED course: Patient is a 64-year-old female presenting to the emergency department with viral URI symptoms that started today. She has no recent sick contacts and symptoms include congestion sore throat cough but no shortness of breath chest pain or wheezing. Vitals showed slightly elevated temperature and mild tachycardia on arrival. Physical exam does show some mild congestion posterior oropharyngeal erythema but no significant swelling patient is handling secretions well. Normal cardiac and lung sounds on auscultation. Patient did test positive for COVID here in the emergency department. She was instructed to take Tylenol and ibuprofen and Tessalon Perles and repeat fillable inhaler was sent to her pharmacy. Patient would like to leave she declines any further treatment at this time. Patient will quarantine at home and return with any worsening cough shortness of breath neck pain photophobia or chest pain. Patient agreeable with this plan. Departure - Departure Disposition: 01 Home, Self Care Clinical Impression: Viral URI with cough, COVID-19, Fever Condition: Good Instructions: ED Viral Syndrome Prescriptions: Albuterol Sulf [Ventolin Hfa Inhaler] 1 - 2 puffs INH Q4HR PRN #1 each PRN Reason: Shortness Of Air/Wheezing Benzonatate [Tessalon] 100 mg PO TID #14 cap Comments: You were seen here in the emergency department for your symptoms of cough congestion sore throat fever. You had a cough positive COVID test here in the emergency department.Your workup here in the emergency department showed positive COVID test continue to take Tylenol 1000 mg every 8 hours and ibuprofen 800 mg every 8 hours for symptom control. I have sent medications to your pharmacy to help with your symptoms as well. If any friends or family get sick and would like to have a Covid test done, but do not have signs or symptoms that would necessitate being hospitalized, there are multiple local options for Covid testing. [facility] keeps an updated list of testing and vaccination options at: [email or web address]. Forms: PCP List Discharge Date/Time: 07/04/24 23:04
[2024-07-04] MEDS: ACETAMINOPHEN 500 MG TABLET PO STA (22:27)
[2024-07-04] MEDS: IBUPROFEN 800 MG TABLET PO STA (22:27)
[2024-07-04 22:43] LABS: B. PARAPERTUSSIS- RESP PCR PAN NOT DETECTED; B. PERTUSSIS- RESP PCR PANEL NOT DETECTED; C. PNEUMONIAE- RESP PCR PANEL NOT DETECTED; CORONAVIRUS 229E-RESP PCR NOT DETECTED; CORONAVIRUS HKU1-RESP PCR NOT DETECTED; CORONAVIRUS NL63-RESP PCR NOT DETECTED; CORONAVIRUS OC43-RESP PCR NOT DETECTED; HUMAN METAPNEUMOVIRUS NOT DETECTED; INFLUENZA A- RESP PCR PANEL NOT DETECTED; INFLUENZA B - RESP PCR PANEL NOT DETECTED; M. PNEUMONIAE- RESP PCR PANEL NOT DETECTED; PARAINFLUENZA VIRUS 1 NOT DETECTED; PARAINFLUENZA VIRUS 2 NOT DETECTED; PARAINFLUENZA VIRUS 3 NOT DETECTED; PARAINFLUENZA VIRUS 4 NOT DETECTED; RHINOVIRUS/ENTEROVIRUS NOT DETECTED; RSV- RESP PCR PANEL NOT DETECTED
[2024-07-04 22:44] LABS: SARS-CoV-2 -RESP PCR PANEL DETECTED
[2024-07-04 22:51] VITALS: BP 98/62
[2024-07-04 23:11] VITALS: O2SAT 98
== END 2024-07-04 23:04 | disposition home or self-care (01) ==
LOC: ED 19:57
DX: U07.1 COVID-19 (principal); J06.9 Acute upper respiratory infection, unspecified; F17.200 Nicotine dependence, unspecified, uncomplicated; Z79.899 Other long term (current) drug therapy; Z79.82 Long term (current) use of aspirin
CPT/HCPCS: 87633; 99282; 99283; A9270

== ENCOUNTER 2024-07-20 23:47 | Emergency (ER) | payer MEDICARE, MEDICAID ==
--- NOTE | 2024-07-21 | ED Physician Documentation ---
History of Present Illness - Stated complaint Stated Complaint: SOA - Additonal information Additional information: 64-year-old female history of asthma, GERD presents with anxiety. History clarified from triage, with spouse at bedside. Patient states she had a difficult interaction with her children recently and felt panicked after this, becoming short of breath. As she breathed quickly, she developed leg cramps. On clarification, she denies shortness of breath beyond this. No chest pain, F/C, N/V/D, focal numbness or weakness, trauma, leg swelling, syncope, SI, HI, hallucinations, drug use, or other new concerns. History from patient and spouse. Per chart review, she was seen here earlier in June and diagnosed with COVID. She states symptoms from then have improved. ROS Constitutional: no fever, no chills Eyes: no visual disturbance, no discharge Ears, Nose, Mouth, Throat: no rhinorrhea, no sore throat Cardiovascular: no chest pain, no palpitations Respiratory: no cough, +as above shortness of breath Gastrointestinal: no abdominal pain, no vomiting, no diarrhea Genitourinary: no dysuria, no hematuria Musculoskeletal: no back pain, no neck stiffness Skin: no rash, no wound Neurological: no focal weakness, no focal numbness PD PAST MEDICAL HISTORY - Past Medical History Cardiovascular: None Respiratory: Asthma Neuro: Seizure disorder Endocrine/Autoimmune: None GI: None 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: 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 : None HEENT: None Psych: None Musculoskeletal: Osteoarthritis Derm: Other - Past Surgical History Past Surgical History: Yes General: Colonoscopy /MIXER RUNNER: Tubal ligation Derm: Skin cancer surgery - Present Medications Home Medications: Ambulatory Orders Medication Instructions Recorded Confirmed Albuterol Sulf [Ventolin Hfa 1 - 2 puffs INH Q4HR PRN #1 inhaler 12/18/18 03/24/24 Inhaler] Aspirin [Kandace] 325 mg PO DAILY 03/24/24 03/24/24 Gabapentin [Neurontin] 600 mg PO HS 03/24/24 03/24/24 Ondansetron Odt [Zofran] 4 mg TL Q6H PRN #10 tablet 03/24/24 tiZANidine [Zanaflex] 4 mg PO HS PRN 03/24/24 03/24/24 Albuterol Sulf [Ventolin Hfa 1 - 2 puffs INH Q4HR PRN #1 each 07/04/24 Inhaler] Benzonatate [Tessalon] 100 mg PO TID #14 cap 07/04/24 - Allergies Allergies/Adverse Reactions: Allergies Allergy/AdvReac Type Severity Reaction Status Date / Time Sulfa (Sulfonamide Allergy Intermediate Rash Verified 07/20/24 23:56 Antibiotics) - Social History Does the pt smoke?: Yes Smoking Status: Current every day smoker Does the pt drink ETOH?: No Does the pt have substance abuse?: No - Immunizations Immunizations are current?: Yes - POLST Patient has POLST: No PD ED PE NORMAL - Free text exam Free text exam: Const: no acute distress, non toxic appearing Eyes: PERRLA, EOMI ENT: mucous membranes moist Neck: supple, non-tender Resp: tachypnea to low 20s, clear to auscultation bilaterally Card: regular tachycardia currently to 110s, no murmurs Abd: non tender diffusely, no rigidity or rebound or guarding Back: no T or L spine tenderness, no CVA tenderness bilaterally Extrem: no deformities, no swelling bilateral lower extremities 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 Cooperative behavior. Fast speech rate, regular rhythm. Appropriate eye contact. Thought content why in ED today. Thought process linear, goal oriented. Mood and affect anxious. Cognition within normal limits. No SI or HI. No AVH noted on exam. Skin: no rash, warm and dry Note during exam with verbal redirection, patient visibly calms, her heart rate slows to WNL, and her tachypnea resolves as well. Results - Vitals Vitals: Vital Signs - 24 hr 07/20/24 07/21/24 07/21/24 23:56 01:44 02:52 Temperature 36.9 C Heart Rate 135 H 109 H 94 Respiratory 30 H 18 16 Rate Blood Pressure 160/90 H 102/61 122/90 H O2 Saturation 94 95 92 If not protocol : Oxygen Flow, liters/minute 07/21/24 07/21/24 07/21/24 04:00 04:54 06:00 Temperature Heart Rate 86 86 82 Respiratory 14 14 14 Rate Blood Pressure 111/69 111/69 107/78 O2 Saturation 98 99 98 If not protocol 2 2 : Oxygen Flow, liters/minute Oxygen O2 Source Room air Oxygen Flow Rate 2 - EKG (time done) EKG: Mild sinus tachycardia without acute ischemia or immediately concerning interval prolongation. EKG releavant findings:: EKG personally interpreted by author of this note. Relevant findings are: Repeat EKG: NSR without acute ischemia or immediately concerning interval prolongation, morphology similar to prior. EKG releavant findings:: EKG personally interpreted by author of this note. Relevant findings are: - Labs Labs: Laboratory Tests 07/21/24 07/21/24 07/21/24 00:53 00:53 00:53 WBC 16.2 H RBC 4.78 Hgb 12.5 Hct 39.9 MCV 83.5 MCH 26.2 L MCHC 31.3 L RDW 13.9 Plt Count 302 MPV 11.3 H Neut # (Auto) 14.0 H Lymph # (Auto) 1.1 L [place] # (Auto) 1.0 Eos # (Auto) 0.0 Baso # (Auto) 0.0 Absolute Nucleated RBC 0.00 Nucleated RBC % 0.0 APTT D-Dimer Sodium 139 Potassium 5.1 H Chloride 102 Carbon Dioxide 27 Anion Gap 10.0 BUN 35 H Creatinine 2.1 H Estimated GFR (MDRD) 24 L Glucose 100 Calcium 10.3 Total Bilirubin 0.6 AST 48 H ALT 57 Alkaline Phosphatase 127 H Troponin I High Sens 29.5 H* Total Protein 8.0 Albumin 4.4 Globulin 3.6 Albumin/Globulin Ratio 1.2 07/21/24 07/21/24 07/21/24 02:38 02:38 03:56 WBC RBC Hgb Hct MCV MCH MCHC RDW Plt Count MPV Neut # (Auto) Lymph # (Auto) [place] # (Auto) Eos # (Auto) Baso # (Auto) Absolute Nucleated RBC Nucleated RBC % APTT 27.5 D-Dimer 301.6 H Sodium Potassium Chloride Carbon Dioxide Anion Gap BUN Creatinine Estimated GFR (MDRD) Glucose Calcium Total Bilirubin AST ALT Alkaline Phosphatase Troponin I High Sens 36.9 H* Total Protein Albumin Globulin Albumin/Globulin Ratio 07/21/24 07/21/24 03:56 05:09 WBC 12.1 H RBC 4.65 Hgb 12.0 Hct 39.0 MCV 83.9 MCH 25.8 L MCHC 30.8 L RDW 14.1 Plt Count 247 MPV 11.9 H Neut # (Auto) Lymph # (Auto) [place] # (Auto) Eos # (Auto) Baso # (Auto) Absolute Nucleated RBC Nucleated RBC % APTT D-Dimer Sodium Potassium Chloride Carbon Dioxide Anion Gap BUN Creatinine Estimated GFR (MDRD) Glucose Calcium Total Bilirubin AST ALT Alkaline Phosphatase Troponin I High Sens 40.4 H* Total Protein Albumin Globulin Albumin/Globulin Ratio - Rads (name of study) CXR Relevant Findings:: EMP independent interpretation of test, See rad report (I agree with radiology reads of imaging on my independent review of imaging. ), Other PD Medical Decision Making - ED course ED course: This patient presented with tachycardia, tachypnea, noting both shortness of breath and anxiety. Elements of this presentation are certainly suggestive of panic attack, with patient's tachycardia and tachypnea visibly improving with verbal re-direction. However, after PO ativan, she remains quite anxious, and I am recommending IM ativan as well as EKG, CBC, CMP, troponin, CXR to assess for alternative etiologies such as symptomatic anemia, cardiac injury, PNA, PTX, arrhythmia. This is much less consistent currently with PE or thyroid derangement. However, we will closely reassess with treatment and work up. Patient and spouse agree with plan. Note ativan is NOT being used as a chemical restraint, but rather for pronounced anxiety. EKG: Mild sinus tachycardia without acute ischemia or immediately concerning interval prolongation. Labs: CBC with neutrophilic leukocytosis to 16 in setting of clear history that patient did not have any symptoms prior to feeling sensation of anxiety, without clear evidence of infection on exam; this could be stress related. No anemia. No thrombocytopenia. CMP with hyperkalemia to 5.1, creatinine elevated to 2.1, which is improved from March when it was 3.3, with mild AST elevation to 48, no ALT elevation, mild alk phos elevation, no bilirubin elevation. CXR: I agree with radiology reads of imaging on my independent review of imaging. "FINDINGS: Surgical changes and devices: None. Lungs and pleura: No pleural effusions or pneumothorax. Lungs are clear. Mediastinum: Mediastinal contours appear normal. Heart size is normal. Bones and chest wall: No suspicious bony lesions. Age-appropriate degenerative changes are seen. Mild dextroconvex scoliotic curvature is seen. Overlying soft tissues appear unremarkable. IMPRESSION: No acute cardiopulmonary process. Reviewed by: Rocky Molina MD on 07/21/2024 12:42 AM AKDT " Troponin returned elevated. Giving full aspirin. Patient has no chest pain. Adding d-dimer. Repeating EKG, troponin. Added UDS. Repeat EKG: NSR without acute ischemia or immediately concerning interval prolongation, morphology similar to prior. D-dimer is within age adjusted limits, making PE unlikely clinically. Repeat troponin increased, from 29.5 to roughly 37. Patient remains chest pain free. Nonetheless, without other clear cause, I am concerned for ACS. I am requesting Cardiology consult. Takotsubo cardiomyopathy also possible in setting of home stressors. I confirmed with patient and spouse at bedside no prior Cardiology evaluation. She has history of reported epilepsy and "fainting spells." On clarification, spouse states he has seen her have mild presyncopal symptoms then pass out before, briefly, the last a few months ago. He thinks she is otherwise overall healthy. There are some limitations to history. Cardiology consult: I spoke at [address] Lacy from [facility], reviewing case over phone. He recommends heparin, TTE when able, continuing troponin trending and transfer. We will contact transfer center to discuss. I am ordering heparin, along with TTE though TTE not available at this time. Patient remains stable, updated on plan with spouse at bedside, consented for ultimate transfer. I spoke with Dr. Albarado of [facility] at about 0415, reviewing case on phone. He agrees with transfer. Their transfer center will call us back when bed available. UDS pending. PTT WNL. Repeat CBC with improvement in leukocytosis. Repeat troponin continues increasing slightly. I spoke with Dr. Baldwin at 0545, hospitalist at [facility], reviewing case on phone. He accepts. We appreciate assistance. We will wait for bed availability. No TTE available today. Signing out at 0700 to AM physician with plan to continue monitoring, complete transfer when bed available (latest is may be around noon). Patient and spouse understand and agree to plan, understanding importance. CRITICAL CARE TIME: outside of procedures, I spent 65 minutes assessing, reassessing, resuscitating this patient, speaking with family and consultants, and interpreting studies and documentation, in the setting of troponin elevation requiring heparin gtt. Departure - Departure Disposition: 02 Transfer Acute [facility] Clinical Impression: Encounter for medical assessment, Elevated troponin Condition: Stable
[2024-07-21] MEDS: LORazepam 1 MG TABLET PO STA (00:18)
[2024-07-21 00:59] LABS: BASOPHILS % (AUTO) 0.2 %; EOSINOPHILS % (AUTO) 0.1 %; HCT - HEMATOCRIT 39.9 % (37.0-47.0); HGB - HEMOGLOBIN 12.5 g/dL (12.0-16.0); LYMPHOCYTES # (AUTO) 1.1 10^3/uL (1.5-3.5); LYMPHOCYTES % (AUTO) 6.8 %; MEAN CORPUSCULAR HEMOGLOBIN 26.2 pg (27.0-31.0); MEAN CORPUSCULAR HGB CONC 31.3 g/dL (32.0-36.0); MEAN CORPUSCULAR VOLUME 83.5 fL (81.0-99.0); MEAN PLATELET VOLUME 11.3 fL (7.9-10.8); MONOCYTES % (AUTO) 6.3 %; NEUTROPHILS % (AUTO) 86.3 %; PLT - PLATELET COUNT 302 10^3/uL (130-450); RED BLOOD COUNT 4.78 10^6/uL (4.20-5.40); RED CELL DISTRIBUTION WIDTH 13.9 % (12.0-15.0); WHITE BLOOD COUNT 16.2 x10^3/uL (4.8-10.8)
[2024-07-21] MEDS: LORazepam 2 MG/ML VIAL IM STA (01:02)
[2024-07-21 01:12] LABS: ALBUMIN 4.4 g/dL (3.2-5.5); ALBUMIN/GLOBULIN RATIO 1.2 (1.0-2.2); BILIRUBIN,TOTAL 0.6 mg/dL (0.2-1.0); CALCIUM 10.3 mg/dL (8.5-10.3); CREATININE 2.1 mg/dL (0.6-1.3); POTASSIUM 5.1 mmol/L (3.5-4.5)
--- NOTE | 2024-07-21 01:44 | XRAY Report ---
PROCEDURE: Chest 1V INDICATIONS: shortness of breath TECHNIQUE: One view of the chest was acquired. COMPARISON: 03/24/2024 FINDINGS: Surgical changes and devices: None. Lungs and pleura: No pleural effusions or pneumothorax. Lungs are clear. Mediastinum: Mediastinal contours appear normal. Heart size is normal. Bones and chest wall: No suspicious bony lesions. Age-appropriate degenerative changes are seen. Mi ld dextroconvex scoliotic curvature is seen. Overlying soft tissues appear unremarkable. IMPRESSION: No acute cardiopulmonary process. Reviewed by: Rocky Molina MD on 07/21/2024 12:42 AM ALVINA Approved by: Rocky Molina MD on 07/21/2024 12:42 AM ALVINA Station ID: [id number]
[2024-07-21] MEDS: ASPIRIN 325 MG TABLET PO STA (03:02)
[2024-07-21 04:08] LABS: MEAN CORPUSCULAR HEMOGLOBIN 25.8 pg (27.0-31.0); MEAN CORPUSCULAR HGB CONC 30.8 g/dL (32.0-36.0); MEAN CORPUSCULAR VOLUME 83.9 fL (81.0-99.0); MEAN PLATELET VOLUME 11.9 fL (7.9-10.8); RED BLOOD COUNT 4.65 10^6/uL (4.20-5.40); RED CELL DISTRIBUTION WIDTH 14.1 % (12.0-15.0); WHITE BLOOD COUNT 12.1 x10^3/uL (4.8-10.8)
[2024-07-21] MEDS: HEPARIN 25000UNITS/500ML (D5W) 25,000 UNIT/500 ML BAG IV SCH (04:45)
[2024-07-21] MEDS: ACETAMINOPHEN 325 MG TABLET PO STA (07:10)
[2024-07-21 09:07] LABS: HCT - HEMATOCRIT 38.2 % (37.0-47.0); HGB - HEMOGLOBIN 11.9 g/dL (12.0-16.0); MEAN CORPUSCULAR HEMOGLOBIN 26.3 pg (27.0-31.0); MEAN CORPUSCULAR HGB CONC 31.2 g/dL (32.0-36.0); MEAN CORPUSCULAR VOLUME 84.5 fL (81.0-99.0); MEAN PLATELET VOLUME 11.5 fL (7.9-10.8); RED BLOOD COUNT 4.52 10^6/uL (4.20-5.40); RED CELL DISTRIBUTION WIDTH 14.2 % (12.0-15.0); WHITE BLOOD COUNT 10.2 x10^3/uL (4.8-10.8)
--- NOTE | 2024-07-21 11:18 | ED Physician Documentation ---
ED Addendum - Addendum Addendum: 07/21/24 11:[address] Lay at shift change. Briefly this is a 64-year-old woman who came in for symptoms most consistent with panic attack but was noted to have elevated troponins. Initially trending up from 29 to around 40 and then stabilized at that level. She is on a heparin drip and currently has no chest pain. We are waiting for a bed availability at [facility] where she has already been accepted. She is getting panicky a bit again and is amenable to a repeat dosing of Ativan.
[2024-07-21] MEDS: LORazepam 2 MG/ML VIAL IVP STA ×2 (11:33→15:42)
[2024-07-21 14:11] VITALS: BP 128/88; O2SAT 100
[2024-07-21 15:35] LABS: COCAINE SCREEN URINE NEGATIVE (NEGATIVE); METHAMPHETAMINES SCREEN, URINE POSITIVE (NEGATIVE); OPIATE SCREEN, URINE POSITIVE (NEGATIVE); THC CANNABINOID SCREEN, URINE NEGATIVE (NEGATIVE)
[2024-07-21 15:36] LABS: AMPHETAMINE SCREEN,URINE POSITIVE (NEGATIVE); BARBITURATE SCREEN,UR NEGATIVE (NEGATIVE); BENZODIAZEPINES SCREEN, URINE POSITIVE (NEGATIVE); BUPRENORPHINE SCREEN, URINE NEGATIVE (NEGATIVE); METHADONE SCREEN, URINE NEGATIVE (NEGATIVE); OXYCODONE SCREEN, URINE NEGATIVE (NEGATIVE); TRICYCLIC ANTIDEPRESSANT,URINE NEGATIVE (NEGATIVE)
== END 2024-07-21 16:50 | disposition short-term general hospital (02) ==
LOC: ED 23:47
DX: I21.4 Non-ST elevation (NSTEMI) myocardial infarction (principal); F41.9 Anxiety disorder, unspecified; F17.200 Nicotine dependence, unspecified, uncomplicated
CPT/HCPCS: 36415; 71045; 80053; 80306; 84484; 85025; 85027; 85379; 85730; 93005; 96372; 96374; 96375; 96376; 99285; A9270; J2060; J8499